=== PATIENT | male | born 1960 | race Caucasian/White ===

== ENCOUNTER 2022-06-10 10:00 | Observation (INO) ==
[~2022-06-10 10:00] MED LIST: ANCEF VIAL 1 GRAM ONE; NS 100 ML IV 100 ML ONE; STERILE WATER IRRIGATION IR ONE
[2022-06-10] MEDS ORDERED: FENTANYL VIAL INJ 100 mcg ONE ×2 (11:01→11:45)
[2022-06-10] MEDS ORDERED: VERSED ONE ×2 (11:01→11:46)
[2022-06-10] MEDS ORDERED: DIPRIVAN VIAL 20 ML ONE (11:01)
[2022-06-10] MEDS ORDERED: NAROPIN 0.75% EPI ONE (11:46)
[2022-06-10] MEDS ORDERED: MARCAINE 0.25% INJ ONE (13:04)
[2022-06-10] MEDS ORDERED: ROBINUL ONE (13:24)
[2022-06-10] MEDS ORDERED: BRIDION ONE (13:24)
[2022-06-10] MEDS ORDERED: ZOFRAN INJ 4 MG VIAL ONE (13:24)
[2022-06-10] MEDS ORDERED: OFIRMEV IV 1000 MG VIAL 1,000 MG/100 ML VIAL IV ONE (13:24)
[2022-06-10] MEDS ORDERED: DECADRON INJ ONE ×2 (13:24→13:59)
[2022-06-10] MEDS ORDERED: PEPCID 20 MG VIAL ONE (13:24)
[2022-06-10] MEDS ORDERED: ULTANE GAS IN ONE (13:39)
[2022-06-10] MEDS ORDERED: XYLOCAINE 2 % (PLAIN) ONE (13:39)
[2022-06-10] MEDS ORDERED: KETAMINE HCL ONE (13:39)
[2022-06-10] MEDS ORDERED: ZEMURON 50 MG VIAL ONE (13:39)
[2022-06-10] MEDS ORDERED: LACRI-LUBE S.O.P. ONE (14:07)
[2022-06-10] MEDS ORDERED: DILAUDID INJ ONE ×2 (15:25→18:11)
[2022-06-10] MEDS ORDERED: NS 1,000 ML IV 1,000 ML ONE (16:18)
[2022-06-10] MEDS ORDERED: HYDROGEN PEROXIDE 3% ONE (17:27)
[2022-06-10] MEDS ORDERED: BARHEMSYS INJ IVP PRN (17:58)
[2022-06-10] MEDS ORDERED: PHENERGAN INJ 25 MG IM PRN (17:58)
[2022-06-10] MEDS ORDERED: ZOFRAN INJ 4 MG VIAL IVP PRN ×2 (17:58→18:14)
[2022-06-10] MEDS ORDERED: BENADRYL INJ 50 MG VIAL IVP PRN (17:58)
[2022-06-10] MEDS ORDERED: REGLAN INJ 10 MG VIAL IVP PRN (17:58)
[2022-06-10] MEDS ORDERED: PERCOCET TAB 5/325 MG PO PRN (18:11)
[2022-06-10] MEDS: DILAUDID INJ IVP PRN ×6 (18:14→23:10)
[2022-06-10 19:49] VITALS: BMI 43.1
[2022-06-10] MEDS: LOPRESSOR TAB 50 MG PO SCH (20:10)
[2022-06-10] MEDS ORDERED: COLACE CAP 100 MG PO SCH (21:00)
[2022-06-10] MEDS ORDERED: FLEXERIL TAB 10 MG PO SCH (21:00)
[2022-06-10] MEDS: ROXICODONE TAB 15 MG PO PRN (23:15)
[2022-06-11] MEDS: DILAUDID INJ IVP PRN ×2 (03:47→09:45)
[2022-06-11 05:43] LABS: BASOPHILS % (AUTO) 0 % (0.2-1.0); HEMATOCRIT 36.8 % (42.0-54.0); HEMOGLOBIN 12.2 g/dL (13.5-18.0); LYMPHOCYTES # (AUTO) 1.2 X10^3/uL (1.3-2.9); LYMPHOCYTES % (AUTO) 6.9 % (21.0-51.0); MEAN CORPUSCULAR HEMOGLOBIN 27.3 pg (27.0-34.0); MEAN CORPUSCULAR HGB CONC 33.1 g/dL (33.0-35.0); MEAN CORPUSCULAR VOLUME 82.4 fL (80.0-100.0); MEAN PLATELET VOLUME 8.6 fL (7.4-11.0); MONOCYTES # (AUTO) 0.9 x10^3/uL (0.3-0.8); MONOCYTES % (AUTO) 5.1 % (0.0-13.0); RED BLOOD COUNT 4.46 X10^6/uL (4.7-6.0); RED CELL DISTRIBUTION WIDTH 15.6 % (11.6-16.5)
[2022-06-11 05:49] LABS: CARBON DIOXIDE 25.7 mmol/L (21-32); CREATININE 1.53 mg/dL (0.70-1.30)
[2022-06-11] MEDS ORDERED: SYNTHROID 100 mcg TAB PO SCH (06:30)
[2022-06-11 08:08] VITALS: BP 136/70
[2022-06-11] MEDS: LOPRESSOR TAB 50 MG PO SCH (08:08)
[2022-06-11] MEDS: ROXICODONE TAB 15 MG PO PRN (08:09)
[2022-06-11] MEDS ORDERED: CARDIZEM CD 120 MG 24-HR PO SCH (09:00)
[2022-06-11] MEDS ORDERED: CRESTOR TAB 10 MG PO SCH (09:00)
[2022-06-11] MEDS ORDERED: LOVENOX INJ 40 MG SYR SC SCH (09:00)
[2022-06-11] MEDS ORDERED: FLOMAX PO SCH (09:00)
[2022-06-11] MEDS ORDERED: ZYLOPRIM PO SCH (09:00)
--- NOTE | 2022-06-11 09:28 | NOTE.SOAP ---
Soap Note Note for Day of Date of Exam: 06/11/22 Subjective Data Subjective Data: This is a 62 year old male who is under observation for post surgical pain s/p Tibiotalocalcaneal fusion of his right lower extremity. Nursing team reports moderate strikethrough bandages last night around midnight, which was reinforced with kerlex and subsequently stopped. Patient seen bedside with nursing team present and patient's significant other. He states around his heel feels "tight", but denies pain at this time. Patient denies n,v,f,c,sob,cp at this time. Objective Data Objective Data: Neurovascularly intact to operative limb. No signs of compartment syndrome. Protective sensation similar to preoperative level. CFT to digits is brisk. Able to move digits of operative foot. No pain on compression of posterior compartment of leg. Incisions are well copated, sutures intact. External fixator is orthogonal to leg and intact. Dressings with moderate strikethrough, but no signs of active bleeds or further sanginous drainage. Assessment Assessment: - S/P R Tibial Talar Calcaneal Arthrodesis (DOS 06/10/22) Plan Plan: - Patient evaluated and chart reviewed today. - At this time patient is noted to have moderate strikethrough of his post operative bandages, so we changed them today. Leave this dressing clean, dry, and intact until follow up in clinic next week. - Patient okay to resume Eliquis tonight (24 hours after surgery) at his previous dosage, 5mg BID. - Prescription put into chart for pain medication (15mg oxycodone Q4H for 6 days) per Dr. Jung. - Follow up with Dr. Jung in clinic within 1 week. - NWB to operative extremity until follow up - patient has wheel chair at home that he will use and denies needing any other DME at this time. - Continue to elevate leg at all times possible. Limit limb being in a dependent position, as this will cause further swelling, which will cause increased pain and likelihood of dehiscence of surgical site. - Follow up with bone biopsy / cultures when completed. - Patient is okay for discharge from foot and ankle POV.
[2022-06-11] MEDS ORDERED: ROXICODONE TAB 15 MG PO STA (10:51)
[2022-06-11] MEDS ORDERED: TORADOL 30 MG VIAL IVP STA (10:51)
[2022-06-11] MEDS ORDERED: ELIQUIS PO SCH (21:00)
== END 2022-06-11 11:45 | disposition home or self-care (01) ==
LOC: MED/SURG
PROVIDERS: ADMIT Obstetrics & Gynecology Obstetrics; ATTEND Obstetrics & Gynecology Obstetrics
DX: J44.9 Chronic obstructive pulmonary disease, unspecified; M25.571 Pain in right ankle and joints of right foot; Z79.1 Long term (current) use of non-steroidal anti-inflammatories (NSAID); E03.8 Other specified hypothyroidism; M19.071 Primary osteoarthritis, right ankle and foot; T84.84XA Pain due to internal orthopedic prosthetic devices, implants and grafts, initial encounter; I10 Essential (primary) hypertension; B95.61 Methicillin susceptible Staphylococcus aureus infection as the cause of diseases classified elsewhere; E11.65 Type 2 diabetes mellitus with hyperglycemia